=== PATIENT | male | born 1995 | race Caucasian/White ===

== ENCOUNTER 2016-06-12 04:31 | Emergency (ER) | payer OTHER ==
[2016-06-12 04:53] VITALS: BP 143/72
[2016-06-12] MEDS ORDERED: ALPRAZOLAM1 M2 PO (04:54)
[2016-06-12] MEDS ORDERED: ESCITALOPRAM OX20 MG PO (04:54)
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
[2016-06-12] MEDS ORDERED: AUGMENTIN 875-1 EACH PO (06:54)
[2016-06-12] MEDS ORDERED: IBUPROFEN800 M1 PO (06:54)
== END 2016-06-12 07:14 ==
LOC: ERH 04:31
DX: S61.411A Laceration without foreign body of right hand, initial encounter (principal); Y04.0XXA Assault by unarmed brawl or fight, initial encounter; Y93.9 Activity, unspecified; Y92.9 Unspecified place or not applicable
CPT/HCPCS: 73130-RT; 90471; 90714; 96374